=== PATIENT | male | born 1930 | race American Indian/Alaskan Native ===

== ENCOUNTER 2018-01-06 10:41 | Outpatient (CLI) | payer MEDICARE ==
--- NOTE | 2018-01-06 13:18 | XRay Report ---
XRAY RIGHT KNEE 3 THREE VIEWS: 01/06/18 10:41:00 CLINICAL: Right knee pain. The patient would not tolerate a sunrise view. FINDINGS: Moderate osteopenia. No fracture or dislocation. Lateral joint space narrowing and irregularity of both the lateral femoral condyle and the lateral tibial plateau. Small lateral osteophytes. Mild medial joint space narrowing with no osteophytes. 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 Opacification of the suprapatellar bursa suggests a moderately large joint effusion. Vascular calcifications. IMPRESSION: Osteoarthritis with greater involvement of the lateral joint space. Osteochondral defects of the lateral femoral condyle and the lateral tibial plateau. Suspect a moderately large joint effusion.
== END 2018-01-06 10:42 | disposition home or self-care (01) ==
LOC: SPVIMAG 10:41
PROVIDERS: ATTEND Orthopaedic Surgery Sports Medicine
DX: M17.11 Unilateral primary osteoarthritis, right knee (principal); M85.861 Other specified disorders of bone density and structure, right lower leg